=== PATIENT | female | born 1970 | race American Indian/Alaskan Native ===

== ENCOUNTER 2016-11-22 21:29 | Emergency (ER) | payer MEDICAID ==
[2016-11-22] MEDS ORDERED: TYLENOL ONE (21:43)
[2016-11-22] MEDS ORDERED: TYLENOL PO ONE (21:53)
[2016-11-22 21:54] VITALS: BP 154/82
[2016-11-22 22:44] LABS: Basophils % (Auto) 0.5 % (0.0-1.8); Eosinophils % (Auto) 0.4 % (0.0-4.3); Hematocrit 28.7 % (30.3-42.9); Hemoglobin 9.3 gm/dl (10.1-14.3); Mean Corpuscular HGB Conc 32 % (30-34); Mean Corpuscular Hemoglobin 27 pg (28-32); Mean Corpuscular Volume 85 fl (79-97); Platelet Count 239 K/mm3 (140-440); Red Blood Count 3.39 M/mm3 (3.65-5.03); White Blood Count 7.9 K/mm3 (4.5-11.0)
[2016-11-22 23:03] LABS: Alanine Aminotransferase 13 units/L (7-56); Albumin/Globulin Ratio 1.2 %; Alkaline Phosphatase 50 units/L (35-129); Anion Gap 17 mmol/L; Blood Urea Nitrogen 14 mg/dL (7-17); Calcium 8.9 mg/dL (8.4-10.2); Carbon Dioxide 21 mmol/L (22-30); Chloride 102.5 mmol/L (98-107); Glucose 106 mg/dL (65-100); Lipase 42 units/L (13-60); Potassium 3.3 mmol/L (3.6-5.0); Sodium 137 mmol/L (137-145); Total Protein 7.3 g/dL (6.3-8.2)
[2016-11-22 23:26] LABS: Bilirubin,Urine NEG (Negative); Blood,Urine NEG (Negative); Ketones,Urine TR mg/dL (Negative); Leukocyte Esterase,Urine SM (Negative); Mucus,Urine 2+ /HPF; Nitrite,Urine NEG (Negative)
== END 2016-11-23 04:45 | disposition left against medical advice (07) ==
LOC: ED 21:29
DX: R10.9 Unspecified abdominal pain (principal); Z53.21 Procedure and treatment not carried out due to patient leaving prior to being seen by health care provider
CPT/HCPCS: 36415; 80053; 81001; 83690; 84703; 85025

== ENCOUNTER 2016-12-14 17:00 | Emergency (ER) | payer MEDICAID ==
[2016-12-14 17:13] VITALS: BP 136/86
[2016-12-14 17:39] LABS: Basophils % (Auto) 0.6 % (0.0-1.8); Eosinophils % (Auto) 1.6 % (0.0-4.3); Hemoglobin 9.5 gm/dl (10.1-14.3); Mean Corpuscular HGB Conc 33 % (30-34); Mean Corpuscular Hemoglobin 27 pg (28-32); Mean Corpuscular Volume 83 fl (79-97); Platelet Count 205 K/mm3 (140-440); Red Blood Count 3.49 M/mm3 (3.65-5.03); Red Cell Distribution Width 15.9 % (13.2-15.2)
[2016-12-14 17:51] LABS: BUN/Creatinine Ratio 18.33; Blood Urea Nitrogen 11 mg/dL (7-17); Carbon Dioxide 23 mmol/L (22-30); Glucose 86 mg/dL (65-100)
[2016-12-14 17:52] LABS: Anion Gap 17 mmol/L; Chloride 105.2 mmol/L (98-107); Potassium 3.8 mmol/L (3.6-5.0); Sodium 141 mmol/L (137-145)
--- NOTE | 2016-12-14 20:39 | Ultrasound Report ---
FINAL REPORT PROCEDURE: US BREAST RT LIMITED TECHNIQUE: eal-time sonography in multiple planes of the RIGHT breast was performed with image documentation; limited. HISTORY: lump COMPARISON: No prior studies are available for comparison. FINDINGS: RIGHT breast: There is a hypoechoic mass in the 12 o'clock position of the right breast measuring 2.5 by 0.8 by 2.3 centimeter. Echotexture is homogeneous. There is peripheral blood flow. The lesion is wider than it is tall and has well-circumscribed borders. There is no posterior acoustical shadowing. Findings suggest benign fibroadenoma. There is no specific evidence of malignancy. There is no cystic abnormality or abscess. IMPRESSION: BI-RADS category 2: Benign finding. Recommendation: Six-month follow-up right breast ultrasound. If clinically indicated, diagnosis can be confirmed with percutaneous ultrasound-guided biopsy.
--- NOTE | 2016-12-15 05:44 | Emergency Department Report ---
Entered by MARCOS RACHEL, acting as scribe for YUDELKA DELA CRUZ NP. - General Chief complaint: Skin/Abscess/Foreign Body Stated complaint: LUMP IN BREAST/RT Time Seen by Provider: 12/14/16 19:11 Source: patient Mode of arrival: Ambulatory Limitations: No Limitations - History of Present Illness Initial comments: This is a 46 y/o female, nontoxic, well nourished in appearance, no acute signs of distress with no significant PMHx presents to the ED c/o a lump on right side of breast that began 2 months ago. Patient states the lump as gradually increased in size since onset. Denies any pain. Aggravated with nothing and alleviated with nothing. Rates severity a 0/10. Patient denies possible insect bite, fever, chills, drainage, abdominal pain, site pain, nipple discharge, nipple sensitivity, nausea, vomiting, chest pain, SOB, ARM[place] or dizziness, numbness , and tingling. Allergic to diphenhydramine HCl. complaint: other (lump) Onset/Timin -: month(s) Location: chest (right breast region) Severity: mild Severity scale (0 -10): 0 Consistency: constant Improves with: none Worsens with: none Context: none Associated symptoms: denies other symptoms Treatments Prior to Arrival: none - Related Data Previous Rx's Medication Instructions Recorded Last Taken Type Ibuprofen [Motrin 600 MG tab] 600 mg PO Q8H PRN #30 tablet 01/02/16 Unknown Rx Famotidine [Pepcid] 40 mg PO QHS #30 tablet 01/24/16 Unknown Rx Nitrofurantoin [place]/M-Cryst 100 mg PO Q12HR #10 capsule 01/24/16 Unknown Rx [Macrobid CAP] traMADol [Ultram 50 MG tab] 50 mg PO Q6HR PRN #20 tablet 01/24/16 Unknown Rx Allergies Allergy/AdvReac Type Severity Reaction Status Date / Time diphenhydramine HCl Allergy Unknown Verified 12/14/16 17:07 [From Benadryl] Abscess Boil HPI - HPI Chief Complaint: Skin/Abscess/Foreign Body Stated Complaint: LUMP IN BREAST/RT Time Seen by Provider: 12/14/16 19:11 Location: Chest (RT side) Severity: None History: No Fever, No Pain, No Purulent Drainage, No Numbness, No Foreign Body, No Previous History, No Insect Bite Home Medications: Previous Rx's Medication Instructions Recorded Last Taken Type Ibuprofen [Motrin 600 MG tab] 600 mg PO Q8H PRN #30 tablet 01/02/16 Unknown Rx Famotidine [Pepcid] 40 mg PO QHS #30 tablet 01/24/16 Unknown Rx Nitrofurantoin [place]/M-Cryst 100 mg PO Q12HR #10 capsule 01/24/16 Unknown Rx [Macrobid CAP] traMADol [Ultram 50 MG tab] 50 mg PO Q6HR PRN #20 tablet 01/24/16 Unknown Rx Allergies/Adverse Reactions: Allergies Allergy/AdvReac Type Severity Reaction Status Date / Time diphenhydramine HCl Allergy Unknown Verified 12/14/16 17:07 [From Benadryl] ED Review of Systems Comment: All other systems reviewed and negative Constitutional: denies: chills, fever Eyes: denies: eye pain, eye discharge, vision change ENT: denies: ear pain, throat pain Respiratory: denies: cough, orthopnea, shortness of breath, SOB with exertion, SOB at rest, stridor, wheezing Cardiovascular: denies: chest pain, palpitations, dyspnea on exertion, orthopnea , edema, syncope, paroxysmal nocturnal dyspnea Endocrine: no symptoms reported Gastrointestinal: denies: abdominal pain, nausea, vomiting, diarrhea Genitourinary: denies: urgency, dysuria, discharge Musculoskeletal: denies: back pain, joint swelling, arthralgia Skin: other (movable lump on RT side of her breast. Nontender. No sore cellulitis noted. No pus, no drainage, no induration. Firm.). denies: rash, lesions Neurological: denies: headache, weakness, numbness, paresthesias ED Past Medical Hx - Past Medical History Previous Medical History?: Yes Hx Psychiatric Treatment: Yes - Surgical History Past Surgical History?: Yes Additional Surgical History: TUBAL LIGATION. ECTOPIC - Family History Family history: no significant - Social History Smoking Status: Current Every Day Smoker Substance Use Type: None - Medications Home Medications: Home Medications Medication Instructions Recorded Confirmed Last Taken Type Ibuprofen [Motrin 600 MG tab] 600 mg PO Q8H PRN #30 tablet 01/02/16 01/24/16 Unknown Rx Famotidine [Pepcid] 40 mg PO QHS #30 tablet 01/24/16 Unknown Rx Nitrofurantoin [place]/M-Cryst 100 mg PO Q12HR #10 capsule 01/24/16 Unknown Rx [Macrobid CAP] traMADol [Ultram 50 MG tab] 50 mg PO Q6HR PRN #20 tablet 01/24/16 Unknown Rx ED Physical Exam - General Limitations: No Limitations General appearance: alert, in no apparent distress - Head Head exam: Present: atraumatic, normocephalic - Eye Eye exam: Present: normal appearance, PERRL, EOMI. Absent: scleral icterus, conjunctival injection, nystagmus, periorbital swelling, periorbital tenderness Pupils: Present: normal accommodation - ENT ENT exam: Present: normal exam, normal orophraynx, mucous membranes moist, TM's normal bilaterally, normal external ear exam - Neck Neck exam: Present: normal inspection, full ROM. Absent: tenderness, meningismus, lymphadenopathy, thyromegaly - Respiratory Respiratory exam: Present: normal lung sounds bilaterally. Absent: respiratory distress, wheezes, rales, rhonchi, stridor, chest wall tenderness, accessory muscle use, decreased breath sounds, prolonged expiratory - Cardiovascular Cardiovascular Exam: Present: regular rate, normal rhythm, normal heart sounds. Absent: bradycardia, tachycardia, irregular rhythm, systolic murmur, diastolic murmur, rubs, gallop - GI/Abdominal GI/Abdominal exam: Present: soft, normal bowel sounds. Absent: distended, tenderness, guarding, rebound, rigid - Extremities Exam Extremities exam: Present: normal inspection, full ROM, normal capillary refill. Absent: tenderness, pedal edema, joint swelling, calf tenderness - Back Exam Back exam: Present: normal inspection, full ROM. Absent: tenderness, CVA tenderness (R), CVA tenderness (L), muscle spasm, paraspinal tenderness, vertebral tenderness, rash noted - Neurological Exam Neurological exam: Present: alert, oriented X3, CN II-XII intact, normal gait, reflexes normal. Absent: motor sensory deficit - Psychiatric Psychiatric exam: Present: normal affect, normal mood - Skin Skin exam: Present: warm, dry, intact. Absent: rash - Other Other exam information: movable lump on RT side of her breast. Nontender. No surrounding cellulitis noted. No redness. No pus, no drainage, no induration. Firm to touch. No nipple discharge or nipple sensitivity. ED Course Vital Signs 12/14/16 17:07 Temperature 98.5 F Pulse Rate 72 Respiratory 16 Rate Blood Pressure 136/86 O2 Sat by Pulse 95 Oximetry - Reevaluation(s) Reevaluation #1: 12/14/16 20:00 Patient speak in full sentences with no signs of distress. ED Medical Decision Making - Lab Data Result diagrams: 12/14/16 17:16 12/14/16 17:16 - Medical Decision Making 46-year-old female that presents with a benign fibroadenoma of the right breast. Ultrasound has been obtained and indicates no significant evidence of malignancy. Findings suggest benign fibroadenoma. Detailed by Dr. Corley. Recommendation; 6 month follow-up right breast ultrasound. If clinically indicated, diagnosed chemical firm with ultrasound guided biopsy. Patient was notified of ultrasound results with no further questions nor by the patient. Patient was instructed to follow-up with a primary care doctor/general surgeon in 3-5 days for a possible ultrasound-guided biopsy to confirm diagnosis. At time time of discharge, the patient does not seem toxic or ill in appearance. No acute signs of distress noted. Patient agrees to discharge treatment plan of care. No further questions noted by the patient. ED Disposition Clinical Impression: Fibroadenoma of right breast Disposition: DC-01 TO HOME OR SELFCARE Is pt being admited?: No Does the pt Need Aspirin: No Condition: Stable Additional Instructions: follow-up with a primary care doctor/general surgeon in 3-5 days for a possible ultrasound-guided biopsy to confirm diagnosis or if symptoms such as pus, drainage, increased swelling, or change in symptoms return to emergency room as soon as possible. Referrals: PRIMARY MD DEO [Primary Care Provider] - 3-5 Days MUMTAZ GRIMES MD [Staff Physician] - 3-5 Days SKYLER MATAMOROS MD [Staff Physician] - 3-5 Days [facility] [Outside] - 3-5 Days [facility] [Outside] - 3-5 Days Forms: Work/School Release Form(ED) This documentation as recorded by the WILSON ramirez JASMINE,accurately reflects the service I personally performed and the decisions made by ,YUDELKA DELA CRUZ, [place].
== END 2016-12-14 20:59 | disposition home or self-care (01) ==
LOC: ED 17:00
DX: D24.1 Benign neoplasm of right breast (principal)
CPT/HCPCS: 36415; 80048; 85025